=== PATIENT | male | born 1975 | race Caucasian/White ===

== ENCOUNTER 2023-05-22 10:16 | Emergency (ER) | payer SELFPAY ==
[~2023-05-22] VITALS: Ht 175.3 cm; Wt 77.1 kg
[2023-05-22] VITALS (9 sets, daily range): BP systolic 117–134; BP diastolic 73–83
[2023-05-22] MEDS ORDERED: ZITHROMAX250 MG PO (12:26)
[2023-05-22] MEDS ORDERED: MEDDOSEPAK PO (12:26)
== END 2023-05-22 12:44 | disposition home or self-care (01) | DRG 153 ==
LOC: ED 10:16
DX: J02.9 Acute pharyngitis, unspecified (principal); H66.90 Otitis media, unspecified, unspecified ear